=== PATIENT | female | born 1970 | race Caucasian/White ===

== ENCOUNTER 2019-01-27 04:23 | Emergency (ER) | payer SELFPAY ==
[~2019-01-27] VITALS: Ht 162.6 cm; Wt 97.7 kg
[~2019-01-27 04:23] MED LIST: DICY10CA40 PO; HYDR-3980 PO; HYDR-4011 PO; OMEP40CA6 PO; ONDA4TAB8 PO
[2019-01-27 04:27] VITALS: Ht 162.6 cm; Wt 97.7 kg
[2019-01-27] MEDS ORDERED: ONDANSETRON 4 MG INJ IV STA (04:48)
[2019-01-27] MEDS ORDERED: HYDROmorphONE 1 MG/ML SYG IV STA (04:48)
--- NOTE | 2019-01-27 05:45 | ERD ---
ER Documentation Chief Complaint Chief Complaint ABD PAIN WITH N/V XTODAY HPI This a 48-year-old female who is complaining of 3 weeks of right upper quadrant pain, is getting worse after eating. The pain does not radiate. She has some nausea but no vomiting no diarrhea. Pain is described as sharp. No chest pain or breathing difficulty. Last night she had vegetables and rice for dinner denies any excess fat intake orally in her diet. The patient just thought she had gastritis over the past few weeks but did not treat it ROS All systems reviewed and are negative except as per history of present illness. Allergies Allergies: Coded Allergies: No Known Allergy (Unverified , 01/27/19) PMhx/Soc Medical and Surgical Hx: pt denies Medical Hx, pt denies Surgical Hx History of Surgery: No Anesthesia Reaction: No Hx Neurological Disorder: No Hx Respiratory Disorders: No Hx Cardiac Disorders: No Hx Psychiatric Problems: No Hx Miscellaneous Medical Probl: No Hx Alcohol Use: No Hx Substance Use: No Hx Tobacco Use: No Smoking Status: Never smoker FmHx Family History: No coronary disease Physical Exam Vitals Vital Signs Date Temp Pulse Resp B/P (MAP) Pulse Ox O2 O2 Flow FiO2 Time Delivery Rate 01/27/19 98.6 90 19 153/71 96 04:27 (98) Physical Exam Const: Well-developed, well-nourished Head: Atraumatic, normocephalic Eyes: Normal Conjunctiva, PERRLA, EOMI, normal sclera, no nystagmus ENT: Normal External Ears, Nose and Mouth, moist mucus membranes. Neck: Full range of motion. No meningismus, no lymphadenopathy. Resp: Clear to auscultation bilaterally, no wheezing, rhonchi, rales Cardio: Regular rate and rhythm, no murmurs, S1 S2 present Abd: Soft, mild to moderate right upper quadrant tenderness, non distended. Normal bowel sounds, no guarding or rebound, no pulsitile abdominal masses or bruits Skin: No petechiae or rashes, no ecchymosis , no maculopapular rash Back: No midline or flank tenderness Ext: No cyanosis, or edema, FROM x 4, normal inspection, neurovascularly intact x 4 Neur: Awake and alert, STR 5/5 x 4, sensation intact x 4, no focal findings, cerebellum intact Psych: Normal Mood and Affect Result Diagram: 01/27/19 0505 Results 24 hrs Laboratory Tests Test 01/27/19 05:05 01/27/19 05:15 White Blood Count 15.4 10^3/ul Red Blood Count 4.99 10^6/ul Hemoglobin 13.0 g/dl Hematocrit 41.9 % Mean Corpuscular Volume 84.0 fl Mean Corpuscular Hemoglobin 26.1 pg Mean Corpuscular Hemoglobin Concent 31.0 g/dl Red Cell Distribution Width 15.7 % Platelet Count 358 10^3/UL Mean Platelet Volume 11.6 fl Immature Granulocytes % 0.900 % Neutrophils % 72.8 % Lymphocytes % 17.8 % Monocytes % 6.8 % Eosinophils % 1.0 % Basophils % 0.7 % Nucleated Red Blood Cells % 0.0 /100WBC Immature Granulocytes # 0.140 10^3/ul Neutrophils # 11.2 10^3/ul Lymphocytes # 2.7 10^3/ul Monocytes # 1.0 10^3/ul Eosinophils # 0.2 10^3/ul Basophils # 0.1 10^3/ul Nucleated Red Blood Cells # 0.0 10^3/ul POC Beta HCG, Qualitative NEGATIVE Current Medications Medications Dose Sig/Leslie Start Time Status Last (Trade) Ordered Route PRN Stop Time Admin Dose Reason Admin 1 mg ONCE STAT 01/27/19 DC 01/27/19 Hydromorphone IV 04:48 01/27/19 05:15 HCl 04:49 (Dilaudid) Ondansetron 4 mg ONCE STAT 01/27/19 DC 01/27/19 HCl (Zofran IV 04:48 01/27/19 05:11 Inj) 04:49 Procedures/MDM The patient's ultrasound of the gallbladder is unremarkable. CT scan abdomen and pelvis is pending. If this is negative for acute pathology will go home and she likely has gallbladder spasm which I can treat with Bentyl or may have some type of duodenitis and I will use a PPI and some pain medicatio n. Departure Diagnosis: Primary Impression: Abdominal pain Abdominal location: right upper quadrant Qualified Codes: R10.11 - Right upper quadrant pain Condition: Stable DAVEY GOLDMAN DO Jan 27, 2019 05:45
[2019-01-27] MEDS ORDERED: IOHEXOL 300MG/ML 150 ML BTL ONE (06:34)
[2019-01-27] MEDS ORDERED: SOD CHLORIDE 0.9% 100 ML ONE (06:34)
[2019-01-27] MEDS ORDERED: SOD CHLORIDE 0.9% 1,000 ML IV ONE (09:00)
[2019-01-27 10:09] VITALS: BP 110/70; PULSE 74; RESP 18
== END 2019-01-27 10:19 | disposition home or self-care (01) ==
LOC: E/R 04:23
DX: K76.0 Fatty (change of) liver, not elsewhere classified (principal); R74.0 Nonspecific elevation of levels of transaminase and lactic acid dehydrogenase [LDH]; N83.201 Unspecified ovarian cyst, right side; R73.9 Hyperglycemia, unspecified
CPT/HCPCS: 36415; 74177; 76705; 80053; 81025; 82962; 83690; 85025; 96374; 96375; 99285; J1170; J2405; J7030; Q9967